=== PATIENT | male | born 1960 | race Caucasian/White ===

== ENCOUNTER 2017-05-31 09:30 | Emergency (ER) | payer BC ==
[2017-05-31] MEDS ORDERED: Ketorolac INJ* 60 MG/2 ML VIAL IM ONE (09:44)
--- NOTE | 2017-05-31 10:24 | ED ---
Back Pain - HPI Summary HPI Summary: Patient presents to the ED with chief complaint of right-sided rib pain after coughing this morning. He has had a severe cough 2 weeks, but endorses worsening coughing this morning. He notes to immediate 10 out of 10 pain. Denies shortness of breath, but has been breathing shallow since the pain began. He continues to endorse a 9 out of 10 pain and is breathing shallow on arrival. He denies any cardiac history or lung history. Takes no medications for either. This has never happened before. Cough is without production. Denies fevers, sweats, chills. He has been otherwise healthy. - History of Current Complaint Chief Complaint: EDChestWallPain Stated Complaint: RIGHT RIB PAIN Time Seen by Provider: 05/31/17 09:40 Hx Obtained From: Patient Onset/Duration: Sudden Onset Onset/Duration: Started Hours Ago Timing: Constant Back Pain Location: Is Discrete @ - Right-sided low rib Severity Initially: Moderate Severity Currently: Moderate Pain Intensity: 10 Pain Scale Used: 0-10 Numeric Character: Sharp Aggravating Symptom(s): Movement, Lifting, Bending, Walking, Cough Alleviating Symptom(s): Rest, Position Associated Signs And Symptoms: Positive: Negative - Risk Factors AAA Risk Factors: Negative TAD Risk Factors: Negative Cauda Equina Risk Factors: Negative Epidural Abscess Risk Factors: Negative - Allergies/Home Medications Allergies/Adverse Reactions: Allergies Allergy/AdvReac Type Severity Reaction Status Date / Time No Known Allergies Allergy Verified 10/18/15 06:47 PMH/Surg Hx/FS Hx/Imm Hx Previously Healthy: Yes Endocrine/Hematology History: Denies: Hx Diabetes Cardiovascular History: Denies: Hx Hypertension, Hx Pacemaker/ICD History: Denies: Hx Renal Disease Musculoskeletal History: Reports: Other Musculoskeletal History - TORN ROTATOR CUFF LEFT SHOULDER Sensory History: Denies: Hx Contacts or Glasses, Hx Hearing Aid Opthamlomology History: Denies: Hx Contacts or Glasses Psychiatric History: Denies: Hx Panic Disorder - Surgical History Hx Anesthesia Reactions: No - N/A Infectious Disease History: No Infectious Disease History: Denies: Traveled Outside the [place] in Last 30 Days - Social History Occupation: Unemployed Lives: With Family Alcohol Use: Weekly Alcohol Amount: ONCE A WEEK Hx Substance Use: No Substance Use Type: Reports: None Hx Tobacco Use: Yes Smoking Status (MU): Former Smoker Amount Used/How Often: 1/2 PPD Length of Time of Smoking/Using Tobacco: 29 YEARS Review of Systems Constitutional: Negative Negative: Fever, Chills, Fatigue Eyes: Negative Cardiovascular: Negative Positive: Shortness Of Breath, Cough Gastrointestinal: Negative Positive: Myalgia - right-sided rib pain Skin: Negative Psychological: Normal All Other Systems Reviewed And Are Negative: Yes Physical Exam Triage Information Reviewed: Yes Vital Signs On Initial Exam: Initial Vitals Temp Pulse Resp BP Pulse Ox 97.8 F 95 22 136/84 98 05/31/17 09:31 05/31/17 09:31 05/31/17 09:31 05/31/17 09:31 05/31/17 09:31 Vital Signs Reviewed: Yes Appearance: Positive: Well-Appearing, Well-Nourished Skin: Positive: Warm, Skin Color Reflects Adequate Perfusion Head/Face: Positive: Normal Head/Face Inspection Eyes: Positive: Normal, STEPHANIE, Conjunctiva Clear Neck: Positive: Supple, No Lymphadenopathy Respiratory/Lung Sounds: Positive: Clear to Auscultation, Breath Sounds Present Cardiovascular: Positive: RRR, Pulses are Symmetrical in both Upper and Lower Extremities Musculoskeletal: Positive: Normal, Strength/ROM Intact Neurological: Positive: Speech Normal Psychiatric: Positive: Affect/Mood Appropriate Diagnostics - Vital Signs Vital Signs Temp Pulse Resp BP Pulse Ox 05/31/17 09:31 97.8 F 95 22 136/84 98 - Laboratory Lab Statement: Any lab studies that have been ordered have been reviewed, and results considered in the medical decision making process. Back Pain Course/Dx - Course Course Of Treatment: During the course of treatment, the patient is evaluated for right-sided rib pain after a violent cough attack this morning. He endorses slight shortness of breath, but only due to shallow breathing. Denies any lung or cardiac history. He has been ill with an upper respiratory infection, but denies any other symptoms. X-ray obtained. Toradol 60 mg IM given on arrival. Lungs CTA bilaterally. Breath sounds equal on both sides. He appears in no acute distress. IMPRESSION: Minimally displaced fracture of the RIGHT eighth rib posterolaterally. Incentive spirometry given. Pain control given. No for work 1 week. He is to follow-up with his PCP. Educated on incentive spirometry up to 10 times per hour. He is okay with discharge at this time and will return for any worsening symptoms included shortness of breath. Negative for pleural effusion or pneumothorax. - Diagnoses Provider Diagnoses: Rib fracture Discharge - Discharge Plan Condition: Stable Disposition: HOME Prescriptions: Benzonatate CAP* [Tessalon CAP*] 100 mg PO TID #21 cap oxyCODONE/Acetamin 10/325(NF) [Percocet 10/325 (NF)] 1 tab PO Q6H #20 tab MDD 4 Patient Education Materials: Rib Fracture (ED), How to Use an Incentive Spirometer (ED) Forms: *Work Release Referrals: Armaan MANUEL,Edward Holley [Primary Care Provider] -
--- NOTE | 2017-05-31 10:39 | RAD ---
Indication: Severe RIGHT rib pain post cough for a few weeks. Britt pop with cough this morning. Pain worse on inspiration. Comparison: September 21, 2008 CT chest. Technique: Dual energy PA chest and 4 view dedicated RIGHT rib series. Report: Minimally displaced fracture of the RIGHT eighth rib posterolaterally. Associated subpleural thickening. Negative for pleural effusion or pneumothorax. No pulmonary infiltrate evident. Negative for cardiomegaly. Unremarkable central pulmonary vasculature and mediastinal contours. IMPRESSION: Minimally displaced fracture of the RIGHT eighth rib posterolaterally. Negative for pleural effusion or pneumothorax.
[2017-05-31 11:07] VITALS: BP 116/65
== END 2017-05-31 11:10 | disposition home or self-care (01) ==
LOC: ED 09:30
DX: S22.31XA Fracture of one rib, right side, initial encounter for closed fracture (principal); X58.XXXA Exposure to other specified factors, initial encounter; Y92.9 Unspecified place or not applicable; Z87.891 Personal history of nicotine dependence
CPT/HCPCS: 96372; 99282; J1885